=== PATIENT | female | born 2000 | race African-American/Black ===

== ENCOUNTER 2019-01-28 16:59 | Emergency (ER) | payer MEDICAID ==
[~2019-01-28] VITALS: Ht 162.6 cm; Wt 85.0 kg
[2019-01-28 18:46] VITALS: BP 146/79
== END 2019-01-28 18:54 | disposition home or self-care (01) ==
LOC: ED 16:59
DX: M54.6 Pain in thoracic spine (principal); Z33.1 Pregnant state, incidental; Z3A.01 Less than 8 weeks gestation of pregnancy